=== PATIENT | female | born 1935 | race Caucasian/White ===

== ENCOUNTER 2016-12-05 14:10 | Inpatient (IN) | payer OTHER ==
[~2016-12-05] VITALS: Ht 165.1 cm; Wt 68.9 kg
--- NOTE | ~2016-12-05 | HP ---
Unit #: [id number] #: [id number] Patient: ALAN DELGADO [id number] [place] [address] [id number] I MR#: [id number] NAME: ALAN DELGADO ROOM: P252 Age: 81 Sex: F Admission Date: 12/05/2016 : 1935 Attending Physician: Huber Fontaine M.D. Admitting Physician: Huber Fontaine M.D. Primary Care Physician: Generic Doctor Not In System HISTORY AND PHYSICAL HISTORY OF PRESENT ILLNESS Alan is a 81-year-old female admitted on 12/05/[address] [place] [address] for depression, increased aggression and to stabilize her medications. PAST MEDICAL HISTORY Hypertension, hyperlipidemia, coronary artery disease. She has a history of an VT, history of breast cancer and a history of TIA, hypothyroidism. PAST SURGICAL HISTORY 1. Cardiac stent 2. Bilateral ear reconstruction 3. Tonsillectomy 4. Mastectomy 5. Hysterectomy 6. Left knee replacement 7. I&D of a wound SOCIAL HISTORY Denies tobacco, alcohol or illegal drug use. She is currently and living alone. FAMILY HISTORY Noncontributory. REVIEW OF SYSTEMS CONSTITUTIONAL: No fever or chills. HEENT: Denies any sore throat, ear pain or runny nose. CARDIOVASCULAR: Denies chest pain, irregular heart rhythm or palpitations. CHEST: Denies shortness of breath or cough. No hemoptysis. GASTROINTESTINAL: Denies nausea, vomiting, diarrhea or chronic constipation. ENDOCRINE: Denies history of increased thirst or urination. No recent significant weight loss or gain. GENITOURINARY: Denies dysuria, frequency, or hematuria. SKIN: Denies any rashes. HEMATOLOGIC: Denies history of increased bleeding or bruising. MUSCULOSKELETAL: Denies any hot, swollen joints. No generalized muscle pain. NEUROLOGIC: Denies problems with vision or speech. No frequent, severe headaches. No numbness, tingling or weakness in any extremities. Denies loss of bladder or bowel control. Unit #: [id number] #: [id number] Patient: ALAN DELGADO CURRENT MEDICATIONS 1. Metoprolol 2. Hydrochlorothiazide 3. Atorvastatin 4. Losartan 5. Levothyroxine 6. Viibryd ALLERGIES No known drug allergies. PHYSICAL EXAMINATION GENERAL: Alert, oriented, in no acute distress. VITAL SIGNS: Blood pressure 144/81, heart rate 62, temperature 98.1. HEIGHT: 5 foot 5 inches. WEIGHT: 150 pounds. SKIN: Warm and dry without rash or lesion. HEENT: Normocephalic. TMs not viewed. Oral and nasal passages clear. Conjunctivae clear. PERRLA. EOMs intact. NECK: Supple without lymphadenopathy or thyromegaly. HEART: Regular rate and rhythm without murmur. LUNGS: Clear. ABDOMEN: Soft, nontender, without masses or hepatosplenomegaly. : Not done. EXTREMITIES: No evidence of cyanosis, clubbing or edema. Moves all without focal deficit. NEUROLOGICAL: Grossly within normal limits. Cranial Nerves: II: Visual zepeda are intact. III, IV AND : Extraocular movements are intact. Pupils are equal, round and reactive to light. V: Facial sensation is grossly normal. VII: Facial movements and expression are normal. VIII: Auditory acuity grossly intact. IX, X: Uvula is midline. Phonation is normal. XI: Patient shrugs shoulders and turns head normally. XII: Tongue protrudes in the midline. Sensory and Motor Function: Sensory and motor sensation is grossly normal. Motor: moves all extremities well. Coordination: Gait is normal. Deep Tendon Reflexes: Intact. IMPRESSION 1. Psychiatric admission. 2. Hypertension. 3. Hyperlipidemia. 4. Coronary artery disease. 5. Hypothyroidism. 6. History of breast cancer. 7. History of VT. 8. History of a TIA. RECOMMENDATIONS Psychiatric, per psychiatrist. MEDICAL: I see no contraindications to participating in facility's activities. MEDICAL PROGNOSIS Good. Unit #: [id number] #: [id number] Patient: ALAN DELGADO MEDICAL CONDITION Stable. Dictated by... Stephanie Serrano/irene TD: 12/07/2016 00:00 JOB #: [id number] HISTORY AND PHYSICAL Page 1 of 1 X DAKOTA MAN APRN HISTORY AND PHYSICAL
--- NOTE | ~2016-12-05 | DS ---
Unit #: [id number] #: [id number] Patient: ALAN DELGADO [id number] [place] [address] [id number] I MR#: [id number] NAME: ALAN DELGADO ROOM: [facility] Age: 81 Sex: F Admission Date: 12/05/2016 : 1935 Discharge Date: 12/08/2016 Attending Physician: Huber Fontaine M.D. Primary Care Physician: Generic Doctor Not In System DISCHARGE SUMMARY REASON FOR ADMISSION Depression. DIAGNOSTIC STUDIES LABORATORY DATA: Remarkable for alkaline phosphatase 115. Urine drugs screen positive for benzodiazepine. HOSPITAL COURSE The patient was admitted to inpatient unit on December 05 and discharged on 12/08/2016. The patient was treated on the inpatient unit with group therapy, individual therapy, and supportive psychotherapy, expressive therapy. The patient was responsive to treatment. Subsequently the patient was discharged with a plan to follow up in outpatient program. DISCHARGE MEDICATIONS 1. Trazodone 100 mg at bedtime for sleep. 2. Metoprolol 25 mg daily for hypertension. 3. Oretic 12.5 mg daily for hypertension. 4. Lipitor 10 mg daily for high cholesterol. 5. Cozaar 50 mg daily for hypertension. 6. Viibryd 20 mg daily for depression. 7. Synthroid 0.025 mg daily for hypothyroidism. 8. Restasis 1 drop daily in each eye. DISCHARGE DIAGNOSES PSYCHIATRIC: Major depressive disorder, recurrent, severe, F33.2. Anxiety disorder, not otherwise specified, F40.01 SECONDARY: Deferred. MEDICAL: History of stroke, heart attack, cancer. History of hypertension. STRESSORS: Psychosocial stressor. FOLLOWUP CARE The patient to follow up in outpatient clinic as per community mental health social worker. CONDITION On DISCHARGE The patient pleasant, cooperative. Denied any psychotic symptom or any suicidal ideation. PROGNOSIS Guarded. DIET AND ACTIVITY Unit #: [id number] #: [id number] Patient: ALAN DELGADO As tolerated. Dictated by... Huber Fontaine M.D. SZC/bzg TD: 12/09/2016 14:55 JOB #: [id number] DISCHARGE SUMMARY Page 1 of 1 X Huber Fontaine MD DISCHARGE SUMMARY
--- NOTE | ~2016-12-05 | PN ---
Unit #: [id number] #: [id number] Patient: ALAN DELGADO [id number] [facility] [address] [place] [address] [id number] I MR#: [id number] NAME: ALAN DELGADO ROOM: P252 Age: 81 Sex: F Admission Date: 12/05/2016 : 1935 Attending Physician: Huber Fontaine M.D. Admitting Physician: Huber Fontaine M.D. Primary Care Physician: Generic Doctor Not In System [facility] PROGRESS NOTES DATE 12/07/2016 DISCUSSION Ms. Alan Delgado is a 81-year-old female. Patient interviewed. Chart reviewed. Obtained information from nursing staff. Patient was pleasant and cooperative. Reports feeling better. Patient reports decrease in anxiety, compliant with medication. Patient was agreeable to be discharged this week. Patient seemed somewhat anxious, nervous. Complete review of system unremarkable. MENTAL STATUS EXAMINATION General appearance, patient dressed casually. Attention span, concentration fair. Oriented in time, place and person. Mood and affect labile. Speech somewhat rapid. Thought process circumstantial. Patient denied any suicidal or homicidal ideation but anxious. Recent and remote memory poor. Insight and judgement poor. DIAGNOSES 1. Major depressive disorder, recurrent. 2. Anxiety disorder NOS. ASSESSMENT/PLAN Advised to continue with current medication and therapeutic protocol. If needed, consider adjustment of medication. Dictated by... Jackie Sutton/saray TD: 12/07/2016 19:59 JOB #: [id number] Unit #: [id number] #: [id number] Patient: ALAN DELGADO PEAJAYNA PROGRESS NOTES Page 1 of 1 X Huber Fontaine MD PROGRESS NOTE
--- NOTE | ~2016-12-05 | PN ---
Unit #: [id number] #: [id number] Patient: ALAN DELGADO [id number] [facility] [address] [place] [address] [id number] I MR#: [id number] NAME: ALAN DELGADO ROOM: P252 Age: 81 Sex: F Admission Date: 12/05/2016 : 1935 Attending Physician: Huber Fontaine M.D. Admitting Physician: Huber Fontaine M.D. Primary Care Physician: Generic Doctor Not In System [facility] PROGRESS NOTES DATE 12/06/2016 DISCUSSION Ms. Spangler is a 81-year-old female. The patient interviewed, chart reviewed, and obtained information from the nursing staff. The patient was anxious, nervous, but denied any thoughts of harming self or others. The patient reports she is feeling better, able to sleep good. REVIEW OF SYSTEMS Complete review of systems unremarkable. MENTAL STATUS EXAMINATION General appearance: Patient dressed casually. Attention span and concentration, fair. Oriented in time, place, and person. Mood and affect, sad and dysphoric, anxious. Speech, rapid in rate, pressured. Thought process, circumstantial. The patient denied any thoughts of harming self or others but anxious. Denied any hallucinations. Recent and remote memory, poor. Insight and judgment, [id number]. DIAGNOSES 1. Major depressive disorder, recurrent, severe. 2. Anxiety disorder, NOS. ASSESSMENT/PLAN Educated about medication and course and prognosis of illness, continue with the current treatment, if needed consider further adjustment of medication. Dictated by... Jackie Sutton/pasquale TD: 12/07/2016 06:59 JOB #: [id number] Unit #: [id number] #: [id number] Patient: ALAN DELGADO PROGRESS NOTES Page 1 of 1 X Huber Fontaine MD PROGRESS NOTE
--- NOTE | ~2016-12-05 | PA ---
Unit #: [id number] #: [id number] Patient: ALAN DELGADO [id number] [facility] [address] [place] [address] [id number] I MR#: [id number] NAME: ALAN DELGADO ROOM: P252 Age: 81 Sex: F Admission Date: 12/05/2016 : 1935 Date of Assessment: Attending Physician: Huber Fontaine M.D. Admitting Physician: Huber Fontaine M.D. Primary Care Physician: Generic Doctor Not In System PSYCHIATRIC ASSESSMENT INFORMANTS The patient reliability, fair informant and chart reliability, good. CHIEF COMPLAINT Depression. HISTORY OF PRESENT ILLNESS Ms. Alan Delgado is a 81-year-old female, reported having increased problem with depression and falling into pieces and feeling of hopelessness. The patient reported that yesterday she lost her salas to lockbox at bank. The patient reported she searched high and low, she was agitated. The patient reported a lot of financial stressors, currently filing for bankruptcy. The patient reported increase in aggression towards people, snap easily, and getting mad, angry, and upset. The patient denied any psychotic symptoms or any suicidal or homicidal ideation. The patient reports that she has good support system. The patient reports that she was recently started on a new antidepressant, having severe anxiety. The patient reports poor sleep and poor appetite. Needing inpatient admission at this time for psychiatric stabilization. PAST PSYCHIATRIC HISTORY Remarkable for history of outpatient treatment for depression at [facility] and inpatient. FAMILY HISTORY AND SOCIAL HISTORY The patient lives by herself, but has good support system from her daughters and granddaughter. No history of abuse. No history of any substance abuse. MEDICAL HISTORY Remarkable for history of stroke, heart attack, history of cancer, and hypertension. Musculoskeletal; muscle strength and tone, no atrophy or abnormal movement. Gait normal. MEDICATION HISTORY The patient is on Desyrel 100 mg at bedtime, Synthroid 0.025 mg daily, Viibryd 20 mg daily, Cozaar 50 mg daily, Lipitor 10 mg daily, hydrochlorothiazide 12.5 mg daily, and Toprol-XL 25 mg daily. ALLERGIES No known drug allergies. SUBSTANCE ABUSE HISTORY Unit #: [id number] #: [id number] Patient: DELGADO,ALAN None. REVIEW OF SYSTEMS HEENT: Eyes, clear. Ears, nose, mouth, and throat; clear. CARDIOVASCULAR: Unremarkable. RESPIRATORY: Unremarkable. GI: Unremarkable. : Unremarkable. SKIN: Unremarkable. LYMPH NODE: Unremarkable. NEUROLOGIC: Unremarkable. ENDOCRINE: Unremarkable. HEMATOLOGIC: Unremarkable. ALLERGIC/IMMUNOLOGIC: Unremarkable. MUSCULOSKELETAL: Muscle strength and tone, no atrophy or abnormal movement. Gait normal. MENTAL STATUS EXAMINATION CONSTITUTIONAL: Measurement of vital signs; temperature 98.1, heart rate 67, respiratory rate 16, 98% oxygen saturation, and blood pressure 145/71. Height 5 feet 5 inches and weight 152 pounds. GENERAL APPEARANCE: The patient dressed casually. The patient did not show any facial deformity. MUSCULOSKELETAL: Please see above. PSYCHIATRIC EXAMINATION Description of speech; regular rate, normal volume, normal articulation, and coherent. Description of thought process, goal directed. Description of association, intact. Description of abnormal psychotic thinking; the patient denied any hallucinations or delusions, but sad, depressed, tearful, anxious, nervous, able to contract for safety. Description of the patient's judgment: Concerning everyday activity, poor. Social situation, poor. Concerning psychiatric condition, poor. Complete mental status examination; oriented in time, place, and person. Recent and remote memory, fair. Attention span and concentration, fair. Language, able to name object and repeat phrases. Fund of knowledge, aware of current event and passive vocabulary intact. Mood and affect, sad and dysphoric. Insight and judgment, fair to poor. ASSETS AND LIABILITIES Assets, the patient is articulate and able to take care of her ADL. Liability, history of depression. ADMITTING DIAGNOSES Psychiatric: Major depressive disorder, recurrent, severe, F33.2 and anxiety disorder, not otherwise specified, F40.01. Secondary diagnosis: Deferred. Medical diagnoses: History of stroke, heart attack, cancer, and history of hypertension. Stressors: Psychosocial stressors. PSYCHIATRIC PLAN AND TREATMENT GOAL AND DISCHARGE PLAN 1. Advised to admit the patient on the inpatient unit. Provide safe, supportive, and structured environment. Unit #: [id number] #: [id number] Patient: ALAN DELGADO 2. Ordered labs; CBC, CMP, UA, and UDS. 3. Precaution for self-harm. 4. The patient to continue with home medication. If needed, consider further adjustment of medication. Treatment goal to attain euthymic mood, gain insight into her problem, and learn coping skills. The patient to attend all the programing on the inpatient unit including group therapy, individual therapy, and family session treatment. DISCHARGE PLAN Plan to stabilize the patient and consider followup in outpatient program. ESTIMATED LENGTH OF STAY 3 to 5 days. Dictated by... Huber Fontaine M.D. RUBÉN/navya TD: 12/06/2016 18:25 JOB #: [id number] PSYCHIATRIC ASSESSMENT Page 1 of 1 X Huber Fontaine MD X PSYCHIATRIC ASSESSMENT
[2016-12-06 10:00] LABS: BASOPHIL% 0.4 % (0-2.5); EOSINOPHIL# 0.2 X10e3 (0-0.7); EOSINOPHIL% 2.4 % (0.0-7.0); HEMATOCRIT 37.1 % (35.0-45.0); HEMOGLOBIN 12.6 gm/dL (12.0-16.0); LYMPHOCYTE# 3.6 X10e3 (1.0-3.5); LYMPHOCYTE% 49.4 % (17.0-45.0); MEAN CELL VOLUME 93.4 FL (83-96); MEAN CORPUSCULAR HEMOGLOBIN 31.6 PG (28-34); MEAN CORPUSCULAR HGB CONC 33.8 g/dL (30-36); MONOCYTE# 0.7 X10e3 (0-1.0); MONOCYTE% 10.3 % (3.0-12.0); NEUTROPHIL# 2.7 X10e3 (1.5-7.1); NEUTROPHIL% 37.5 % (40-75); PLATELET COUNT 225 X10e3 (140-420); RED BLOOD COUNT 3.97 X10e (3.90-5.30); RED CELL DISTRIBUTION WIDTH 13.6 % (11.0-15.5); WHITE BLOOD COUNT 7.2 X10e3 (4.0-10.5)
[2016-12-06 10:14] LABS: DIFF IND NO
[2016-12-06 10:23] LABS: ALBUMIN SERUM 4.2 g/dL (3.5-5.0); BILIRUBIN,TOTAL 0.6 mg/dL (0.2-2.0); CALCIUM SERUM 9.6 mg/dL (8.4-10.2); GLOM FILT RATE Estimated 53.6 mL/min (>60); POTASSIUM 4.1 mmol/L (3.5-5.1); PROTEIN TOTAL SERUM 6.8 g/dL (6.0-8.3)
[2016-12-07 10:05] LABS: URINE APPEARANCE CLEAR; URINE BILIRUBIN NEG (NEG); URINE BLOOD 3+ (NEG); URINE COLOR YELLOW; URINE GLUCOSE NEG (NEG); URINE KETONE NEG (NEG); URINE LEUKOCYTE ESTERASE 2+ (NEG); URINE NITRATE NEG (NEG); URINE PROTEIN NEG (NEG); URINE SPECIFIC GRAVITY 1.021 (1.003-1.035); URINE UROBILINOGEN 0.2 MG/DL (NEG)
[2016-12-07 10:08] LABS: URINE BACTERIA AUWI NEG (NEGATIVE); URINE SQUAMOUS EPITHELIAL CELL NONE SEEN /[HPF]; UWBCS1 AUWI 50-100 (0-5)
[2016-12-07 10:35] LABS: URINE MUCUS PRESENT; URINE YEAST PRESENT
[2016-12-07 10:38] LABS: U HYALINE CASTS AUWI 0-2 /[LPF]
[2016-12-07 10:59] LABS: AMPHETAMINE NEG (NEG); BARBITURATES NEG (NEG); BENZODIAZEPINES POS (NEG); COCAINE NEG (NEG); MARIJUANA NEG (NEG); OPIATES NEG (NEG); TRICYCLIC ANTIDEPRESSANTS NEG (NEG); U METHADONE NEG (NEG)
== END 2016-12-08 14:00 | disposition home or self-care (01) | DRG 885 ==
LOC: P2L 17:00 → P1S 22:30 → P2L 22:30
PROVIDERS: Psychiatry & Neurology Psychiatry
DX: F33.2 Major depressive disorder, recurrent severe without psychotic features (principal); I10 Essential (primary) hypertension; F41.9 Anxiety disorder, unspecified; Z86.73 Personal history of transient ischemic attack (TIA), and cerebral infarction without residual deficits; I25.2 Old myocardial infarction; Z90.710 Acquired absence of both cervix and uterus; Z96.652 Presence of left artificial knee joint
CPT/HCPCS: 80053; 80307; 81003; 85025